=== PATIENT | female | born 1985 | race Caucasian/White ===

== ENCOUNTER 2016-06-24 08:09 | Day surgery (SDC) | payer OTHER ==
[2016-06-20 12:52] LABS: HEMATOCRIT 39.5 % (36.0-47.0); HEMOGLOBIN 13.2 g/dL (12.0-15.5); HGB HCT DIFFERENCE 0.1; MEAN CORPUSCULAR HEMOGLOBIN 31.2 pg (27.0-33.4); MEAN CORPUSCULAR HGB CONC 33.5 g/dL (32.0-36.0); MEAN CORPUSCULAR VOLUME 93 fl (80-97); RED BLOOD COUNT 4.24 10^6/uL (3.72-5.28); RED CELL DISTRIBUTION WIDTH 12.6 % (11.5-14.0); WHITE BLOOD COUNT 6.2 10^3/uL (4.0-10.5)
[2016-06-20 12:58] LABS: APPEARANCE,URINE CLEAR; BILIRUBIN,URINE NEGATIVE (NEGATIVE); GLUCOSE, URINE NEGATIVE (NEGATIVE); KETONES,URINE NEGATIVE (NEGATIVE); LEUKOCYTE ESTERASE,URINE NEGATIVE (NEGATIVE); NITRITE,URINE NEGATIVE (NEGATIVE); PROTEIN,URINE NEGATIVE (NEGATIVE); URINE SPECIFIC GRAVITY 1.018; UROBILINOGEN,URINE NEGATIVE mg/dL (<2.0)
[~2016-06-24 08:09] MED LIST: LACTATED RINGERS 1000 ML IV PRN; LIDOCAINE 0.5% INJ-PF (5 MG/ML) 50 ML SDV SUBCUT PRN
[2016-06-24] MEDS ORDERED: MIDAZOLAM 2 MG/2 ML INJ ONE (10:51)
[2016-06-24] MEDS ORDERED: FENTANYL CITRATE INJ/PF 250 MCG/5 ML AMPULE ONE (10:51)
[2016-06-24] MEDS ORDERED: PROPOFOL INJ 200 MG/20 ML VIAL IV ONE (10:52)
[2016-06-24] MEDS ORDERED: PROMETHAZINE HCL INJ 25 MG/1 ML VIAL IV PRN ×2 (11:23)
[2016-06-24] MEDS ORDERED: OXYCODONE-ACETAMINOPHEN 5-325 MG TABLET PO PRN ×4 (11:23→12:57)
[2016-06-24] MEDS ORDERED: MORPHINE SULFATE 10 MG/ML INJ IV PRN (11:23)
[2016-06-24] MEDS ORDERED: ONDANSETRON HCL INJ/PF 4 MG/2 ML SDV IV PRN (11:23)
[2016-06-24] MEDS ORDERED: FENTANYL CITRATE INJ/PF 100 MCG/2 ML AMPUL IV PRN ×3 (11:23)
[2016-06-24] MEDS ORDERED: DIPHENHYDRAMINE HCL 50 MG/ML VIAL IV PRN (11:23)
[2016-06-24] MEDS: MEPERIDINE HCL/PF INJ 25 MG/1 ML DISP.SYRIN IV PRN ×2 (12:29→12:34)
[2016-06-24] MEDS ORDERED: MEPERIDINE HCL/PF INJ 25 MG/1 ML DISP.SYRIN ONE (12:29)
[2016-06-24] MEDS ORDERED: MORPHINE SULFATE 10 MG/ML INJ IM PRN (12:38)
[2016-06-24] MEDS ORDERED: IBUPROFEN 800 MG TABLET PO PRN (12:55)
--- NOTE | 2016-06-24 13:43 | OPERATIVE REPORT E ---
Operative Report NAME: SUMIT MORALES : 1985 AGE: 31Y DATE OF SURGERY: 06/24/2016 ROOM: PREOPERATIVE DIAGNOSIS: Undesired fertility. POSTOPERATIVE DIAGNOSIS: Undesired fertility. PROCEDURE: Bilateral salpingectomy. SURGEON: RENETTA OROURKE M.D. SPINNING LATHE OPERATOR AUTOMATIC: KATHI Hewitt Student. ANESTHESIA: Dr. Jones with general. FINDINGS: Normal uterus, tubes, and ovaries. A very stenotic and flat cervix that was flat to the anterior vaginal wall. COMPLICATIONS: None. ESTIMATED BLOOD LOSS: Twenty mL. SPECIMENS REMOVED: Bilateral fallopian tubes. INDICATIONS: The patient is a G4, P3, who has been previously counseled on risk of regret and permanence of this procedure and was counseled again today in regard to if she desire future child bearing that she would need to undergo IVF. She was also counseled on the risks, benefits, and alternatives to salpingectomy, and she indicated that in order to reduce her risk of reanastomosis, reduce her risk of ectopic , and reduce her risk of ovarian cancer that she would prefer salpingectomy and consents reflect this. PROCEDURE IN DETAIL: Patient was taken to the operating room, prepared, and draped in a normal sterile fashion in dorsal lithotomy position under sterile conditions. An in and out catheter was performed of approximately 20 mL of clear urine. A sterile speculum was placed in the vagina. A stenotic flat cervix was noted. Attempt to place a uterine manipulator through the cervix, due to its stenosis was not obtainable. Therefore, a sterile sponge stick was placed into the vagina for uterine manipulation. Gloves were changed and attention was turned to the upper portion of the case where an umbilical skin incision was made with the scalpel to accommodate a 5 mm trocar. Through this incision a Veress needle was introduced and peritoneal placement was confirmed with free flow of sterile water. The peritoneal cavity was then insufflated with approximately 2 liters of CO2 gas. The Veress needle was removed and a 5 mm trocar was placed through the incision and the camera was introduced to confirm the above findings. The patient was placed in steep Trendelenburg under direct visualization. Two 5 mm ports were placed approximately 10 cm in both lower quadrants. The bowel was swept away and the uterus was manipulated for better visualization of the fallopian tubes. Beginning with the left fallopian tube, this was grasped with an atraumatic grasper and the fallopian tube was elevated. The fallopian tube was then transected using a LigaSure without difficulty. Good hemostasis was maintained. This was repeated on the right fallopian tube without difficulty. The peritoneal cavity was inspected once more and found to be hemostatic. The lower trocars were removed under direct visualization with good hemostasis. The camera was removed and the abdomen was deflated of CO2 gas and the umbilical trocar was removed. The 3 sites were then closed with 4-0 Vicryl. Patient tolerated procedure well. Sponge, lap, and needle counts were correct x2. Patient was taken to recovery in stable condition. DICTATING PHYSICIAN: RENETTA OROURKE M.D. [id number] PHY#: [id number] ID: [id number] JOB#: [id number] ACCT: [id number] cc:RENETTA OROURKE M.D. >
[2016-06-24] MEDS ORDERED: DEXAMETHASONE SOD PHOSPHATE INJ 4 MG/1 ML VIAL ONE (14:23)
[2016-06-24] MEDS ORDERED: GLYCOPYRROLATE INJ 0.4 MG/2 ML VIAL ONE (14:23)
[2016-06-24] MEDS ORDERED: NEOSTIGMINE METHYLSULFATE 10 MG/10 ML VIAL ONE (14:23)
[2016-06-24] MEDS ORDERED: ONDANSETRON HCL INJ/PF 4 MG/2 ML SDV ONE (14:23)
[2016-06-24] MEDS ORDERED: SUCCINYLCHOLINE CHLORIDE INJ 200 MG/10 ML VIAL ONE (14:23)
[2016-06-24] MEDS ORDERED: LIDOCAINE 2% INJ-PF (20 MG/ML) 10 ML AMPUL ONE (14:23)
[2016-06-24] MEDS ORDERED: VECURONIUM BROMIDE INJ 10 MG VIAL IV ONE (14:23)
[2016-06-24 15:45] VITALS: BP 121/77
== END 2016-06-24 14:30 | disposition home or self-care (01) ==
LOC: OROUT 08:09
PROVIDERS: ATTEND Obstetrics & Gynecology
PROC: 0UT74ZZ Resection of Bilateral Fallopian Tubes, Percutaneous Endoscopic Approach (ICD-10-PCS; principal; 2016-06-24 12:22)
DX: Z30.2 Encounter for sterilization (principal); N88.2 Stricture and stenosis of cervix uteri
CPT/HCPCS: 36415; 85027; 81005; 81025; 88302 ×2; 58661; J2250; J1100; J3010; J3490 ×2; J2175; J0330; J2405; J2704; 840

== ENCOUNTER 2017-05-07 08:27 | Day surgery (SDC) | payer OTHER ==
[2017-04-29 11:52] LABS: HEMATOCRIT 39.5 % (36.0-47.0); HEMOGLOBIN 13.7 g/dL (12.0-15.5); HGB HCT DIFFERENCE 1.6; MEAN CORPUSCULAR HEMOGLOBIN 32.2 pg (27.0-33.4); MEAN CORPUSCULAR HGB CONC 34.7 g/dL (32.0-36.0); MEAN CORPUSCULAR VOLUME 93 fl (80-97); RED BLOOD COUNT 4.27 10^6/uL (3.72-5.28); RED CELL DISTRIBUTION WIDTH 12.4 % (11.5-14.0); WHITE BLOOD COUNT 7.3 10^3/uL (4.0-10.5)
[2017-04-29 11:59] LABS: APPEARANCE,URINE CLEAR; BILIRUBIN,URINE NEGATIVE (NEGATIVE); GLUCOSE, URINE NEGATIVE (NEGATIVE); KETONES,URINE NEGATIVE (NEGATIVE); LEUKOCYTE ESTERASE,URINE NEGATIVE (NEGATIVE); NITRITE,URINE NEGATIVE (NEGATIVE); PROTEIN,URINE NEGATIVE (NEGATIVE); URINE SPECIFIC GRAVITY 1.017; UROBILINOGEN,URINE NEGATIVE mg/dL (<2.0)
[2017-04-29 12:18] LABS: ALANINE AMINOTRANSFERASE 29 U/L (9-52); ALBUMIN 4.6 g/dL (3.5-5.0); ALKALINE PHOSPHATASE 79 U/L (38-126); ANION GAP 13 (5-19); ASPARTATE AMINO TRANSFERASE 20 U/L (14-36); BILIRUBIN,DIRECT 0.4 mg/dL (0.0-0.4); BILIRUBIN,TOTAL 0.6 mg/dL (0.2-1.3); BLOOD UREA NITROGEN 14 mg/dL (7-20); CARBON DIOXIDE 24 mmol/L (22-30); CHLORIDE 105 mmol/L (98-107); CREATININE RESULT 0.69 mg/dL (0.52-1.25); GLUCOSE 79 mg/dL (75-110); POTASSIUM 4.8 mmol/L (3.6-5.0); SODIUM 141.5 mmol/L (137-145); TOTAL PROTEIN 7.1 g/dL (6.3-8.2)
[2017-04-29 16:20] LABS: THYROID STIMULATING HORMONE 2.44 uIU/mL (0.47-4.68)
[~2017-05-07 08:27] MED LIST changes: -LIDOCAINE 0.5% INJ-PF (5 MG/ML) 50 ML SDV SUBCUT PRN
[2017-05-07] MEDS ORDERED: CEFAZOLIN 1 GM/D5W RTU 1 GM/50 ML RTUPB IV ONE (08:43)
[2017-05-07] MEDS ORDERED: LIDOCAINE 2% INJ-PF (20 MG/ML) 10 ML AMPUL ONE (09:43)
[2017-05-07] MEDS ORDERED: FENTANYL CITRATE INJ/PF 100 MCG/2 ML AMPUL ONE ×2 (09:44)
[2017-05-07] MEDS ORDERED: ONDANSETRON HCL INJ/PF 4 MG/2 ML SDV ONE (09:44)
[2017-05-07] MEDS ORDERED: DEXAMETHASONE SOD PHOSPHATE INJ 4 MG/1 ML VIAL ONE (09:44)
[2017-05-07] MEDS ORDERED: MIDAZOLAM 2 MG/2 ML INJ ONE (09:44)
[2017-05-07] MEDS ORDERED: PROPOFOL INJ 200 MG/20 ML VIAL IV ONE (09:45)
[2017-05-07] MEDS ORDERED: HYDROMORPHONE HCL INJ/PF 2 MG/ML AMPULE ONE (09:45)
[2017-05-07] MEDS ORDERED: ACETAMINOPHEN 100 ML IV ONE ×2 (09:45→17:00)
--- NOTE | 2017-05-07 12:08 | OPERATIVE REPORT E ---
Operative Report NAME: SUMIT MORALES : 1985 AGE: 32Y DATE OF SURGERY: 05/07/2017 ROOM: PREOPERATIVE DIAGNOSES: 1. Abnormal uterine bleeding. 2. Anemia. 3. Dysmenorrhea. POSTOPERATIVE DIAGNOSES: 1. Abnormal uterine bleeding. 2. Anemia. 3. Dysmenorrhea. SURGEON: RENETTA OROURKE M.D. CMS EXPERT: Niya Spivey, airline pilot/first officer tech. ANESTHESIA: Dr. Jones with general. FINDINGS: A 10-week size uterus with no fallopian tubes from previous salpingectomy. Normal ovaries. COMPLICATIONS: None. ESTIMATED BLOOD LOSS: 100 mL. SPECIMENS REMOVED: Uterus and cervix. PROCEDURE: Robotic-assisted total laparoscopic hysterectomy. PROCEDURE IN DETAIL: Patient was taken to the operating room and prepared and draped in the normal sterile fashion in a dorsal lithotomy position. Under sterile conditions, a Jenkins catheter was placed to gravity. A sterile speculum was placed into the vagina and the cervix was grasped on the anterior lip with a single-toothed tenaculum and prepped with Betadine. Cervix was then sounded to approximately 8 cm. The cervix was then dilated to accommodate a medium Vcare, which was placed without difficulty. Instruments were removed and gloves were changed. Attention was then turned to the upper portion of the case where a supraumbilical skin incision was made with a scalpel and carried through to the underlying layer of fascia. The fascia was grasped with 2 Raymond's and tented up. The fascia was then transected using Jackson scissors. The peritoneal cavity was entered bluntly. GelPort was placed in the normal fashion and the abdomen was insufflated with approximately 2 L of CO2 gas through the AirSeal assistance port. The camera was introduced with the above findings noted and the patient was placed in steep Trendelenburg. Under direct visualization, two 5 mm ports were placed approximately 10 cm on either side of the umbilicus. The robot was docked and instruments were placed accordingly. I then descrubbed and sat at the console where beginning with the left adnexa the utero-ovarian ligament was transected using the vessel sealer. This was carried through on the uterine artery until reached the level for creation of the bladder flap and the bladder flap was begun with the monopolar scissors dissecting bluntly away from the lower uterine segment and the Vcare could be noted through distortion of vaginal mucosa. Turning my attention to the right adnexa in a similar fashion, I transected the uterine artery ligament and skeletonized and transected the uterine arteries until the bladder flap could be completed on this side with monopolar scissors. I then completely completed the transection and the coagulation of the uterine arteries. I performed the colporrhaphy using monopolar scissors starting on the posterior side of the cervix and going in a circumferential fashion until the specimen was completely freed. The specimen was then removed through the vaginal defect without difficulty. Instruments were changed to a ProGrasp and Carlos Manuel Needle industrial truck driver. A V-Loc needle was passed through the assistance port and this was used to close the vaginal cuff. There was a little bit of bleeding noted, however, the vaginal cuff closure incorporated the vessels and tied those off adequately. During the vaginal cuff closure, the uterosacral ligament was incorporated into the closure in order to assist with pelvic floor support. The ureters were then inspected on both sides. The left ureter did appear to be a little lazy and peristalsing, but it did peristalse after a few moments, and the right ureter peristalsed without difficulty. All instruments were then removed and the patient was taken out of dorsal lithotomy position. The fascia was closed at the umbilical skin using 0 Vicryl. All 3 skin incisions were closed using 4-0 Vicryl. Patient tolerated procedure well. Sponge, lap, and needle counts were correct x2. Patient was taken to recovery in stable condition. DICTATING PHYSICIAN: RENETTA OROURKE M.D. [id number] PHY#: [id number] ID: [id number] JOB#: [id number] ACCT: [id number] cc:RENETTA OROURKE M.D. >
[2017-05-07] MEDS ORDERED: KETOROLAC TROMETHAMINE INJ/PF 30 MG/1 ML SDV ONE (12:20)
[2017-05-07] MEDS ORDERED: PROMETHAZINE HCL INJ 25 MG/1 ML VIAL ONE (12:20)
[2017-05-07] MEDS ORDERED: DIPHENHYDRAMINE HCL 50 MG/ML VIAL IV PRN (12:43)
[2017-05-07] MEDS ORDERED: FENTANYL CITRATE INJ/PF 100 MCG/2 ML AMPUL IV PRN ×3 (12:43)
[2017-05-07] MEDS ORDERED: PROMETHAZINE HCL INJ 25 MG/1 ML VIAL IV PRN ×2 (12:43)
[2017-05-07] MEDS ORDERED: MORPHINE SULFATE 10 MG/ML INJ IV PRN (12:43)
[2017-05-07] MEDS ORDERED: OXYCODONE-ACETAMINOPHEN 5-325 MG TABLET PO PRN ×3 (12:43→16:27)
[2017-05-07] MEDS ORDERED: MEPERIDINE HCL/PF INJ 25 MG/1 ML DISP.SYRIN IV PRN (12:43)
[2017-05-07] MEDS ORDERED: ONDANSETRON HCL INJ/PF 4 MG/2 ML SDV IV PRN (12:43)
[2017-05-07] MEDS ORDERED: GLYCOPYRROLATE INJ 0.4 MG/2 ML VIAL ONE (14:48)
[2017-05-07] MEDS ORDERED: NEOSTIGMINE METHYLSULFATE 10 MG/10 ML VIAL ONE (14:48)
[2017-05-07] MEDS ORDERED: METOCLOPRAMIDE HCL INJ/PF 10 MG/2 ML SDV ONE (14:48)
[2017-05-07] MEDS ORDERED: SUCCINYLCHOLINE CHLORIDE INJ 200 MG/10 ML VIAL ONE (14:48)
[2017-05-07] MEDS ORDERED: PHENYLEPHRINE HCL INJ/PF 10 MG/1 ML SDV ONE (14:48)
[2017-05-07] MEDS: KETOROLAC TROMETHAMINE INJ/PF 30 MG/1 ML SDV IV SCH ×2 (15:05→21:59)
[2017-05-07] MEDS ORDERED: OXYCODONE-ACETAMINOPHEN 5-325 MG TABLET ONE (16:35)
[2017-05-07] MEDS: OXYCODONE-ACETAMINOPHEN 5-325 MG TABLET PO PRN (23:28)
[2017-05-08 05:11] LABS: HEMATOCRIT 32.7 % (36.0-47.0); HEMOGLOBIN 11.3 g/dL (12.0-15.5); HGB HCT DIFFERENCE 1.2; MEAN CORPUSCULAR HEMOGLOBIN 32.6 pg (27.0-33.4); MEAN CORPUSCULAR HGB CONC 34.7 g/dL (32.0-36.0); MEAN CORPUSCULAR VOLUME 94 fl (80-97); RED BLOOD COUNT 3.48 10^6/uL (3.72-5.28); RED CELL DISTRIBUTION WIDTH 12.4 % (11.5-14.0); WHITE BLOOD COUNT 8.8 10^3/uL (4.0-10.5)
[2017-05-08] MEDS: KETOROLAC TROMETHAMINE INJ/PF 30 MG/1 ML SDV IV SCH (05:16)
--- NOTE | 2017-05-08 07:49 | PDOC DISCHARGE SUMMARY ---
General - Admit/Disc Date/PCP Admission Date/Primary Care Provider: CRUZ VILCHIS MD Discharge Date: 05/08/17 - Discharge Diagnosis (1) Abnormal uterine bleeding (AUB) Is this a current diagnosis for this admission?: Yes (2) Anemia Is this a current diagnosis for this admission?: Yes (3) Dysmenorrhea Is this a current diagnosis for this admission?: Yes - Additional Information Home Medications: No Home Medications 04/29/17 History of Present Illness History of Present Illness: SUMIT MORALES is a 32 year old female Hospital Course Hospital Course: underwent RATLH with normal post operative course. Physical Exam - Physical Exam Vital Signs: Temp Pulse Resp BP Pulse Ox 98.2 F 63 16 117/56 L 100 05/08/17 04:08 05/08/17 04:08 05/08/17 04:08 05/08/17 04:08 05/08/17 04:08 Intake & Output 05/07/17 05/08/17 05/09/17 06:59 06:59 06:59 Intake Total 3847 Output Total 1910 Balance 1937 Weight 80.74 kg General appearance: PRESENT: no acute distress, cooperative Head exam: PRESENT: atraumatic GI/Abdominal exam: PRESENT: soft, tenderness - incisions c/d/intact post op pain appropriate Result Laboratory Results: 05/08/17 04:55 04/29/17 10:38 05/08/17 04:55 WBC 8.8 RBC 3.48 L Hgb 11.3 L Hct 32.7 L MCV 94 MCH 32.6 MCHC 34.7 RDW 12.4 Plt Count 277 Plan Discharge Plan: discharge home with scheduled f/u Time Spent: Less than 30 Minutes
[2017-05-08] MEDS: OXYCODONE-ACETAMINOPHEN 5-325 MG TABLET PO PRN (09:17)
[2017-05-08 11:02] VITALS: BP 109/60
[2017-05-08] MEDS ORDERED: INFLUENZA ADLT QUAD (36MOS+) 2017-18 VAC 0.5 ML SYR IM PRN (11:43)
== END 2017-05-08 13:00 | disposition home or self-care (01) ==
LOC: OROUT 08:27 → 2S 13:24 → OROUT 05-08 13:00
PROVIDERS: ATTEND Obstetrics & Gynecology
PROC: 8E0W4CZ Robotic Assisted Procedure of Trunk Region, Percutaneous Endoscopic Approach (ICD-10-PCS; 2017-05-07)
PROC: 0UT94ZZ Resection of Uterus, Percutaneous Endoscopic Approach (ICD-10-PCS; principal; 2017-05-07 10:30)
DX: N93.8 Other specified abnormal uterine and vaginal bleeding (principal); N94.6 Dysmenorrhea, unspecified; N80.0 Endometriosis of uterus; D64.9 Anemia, unspecified; R10.2 Pelvic and perineal pain; Z23 Encounter for immunization
CPT/HCPCS: 58570; 90471; S2900; 36415; 80053; 81001; 81025; 840; 84439; 84443; 85027; 86850; 86900; 86901; 88307; 90686; J0131; J0330; J0690; J1100; J1170; J1885; J2250; J2370; J2405; J2550; J2704; J2765; J3010; J3490